=== PATIENT | female | born 1940 | race Caucasian/White ===

== ENCOUNTER 2019-06-06 11:04 | Emergency (ER) | payer MEDICARE, BC ==
[2019-06-06] MEDS ORDERED: Ketorolac 30 MG/ML SDV IM ONE (11:56)
--- NOTE | 2019-06-06 11:59 | EDM.PDOC ---
ED HPI GENERAL MEDICAL PROBLEM - General Chief Complaint: Lower Extremity Injury/Pain Stated Complaint: PAIN IN THE LEG Time Seen by Provider: 06/06/19 11:57 Source of Information: Reports: Patient, Family, RN Notes Reviewed History Limitations: Reports: No Limitations - History of Present Illness INITIAL COMMENTS - FREE TEXT/NARRATIVE: 79-year-old female presents emergency department today complaint of left knee pain, she denies any trauma she has had knee pain for the last 3 days however got progressively worse today to the point where she cannot bear weight because of a history of hip replacement on the left side - Related Data Allergies Allergy/AdvReac Type Severity Reaction Status Date / Time No Known Allergies Allergy Verified 10/06/18 07:44 Home Meds: Home Meds Lisinopril [Prinivil] 10 mg PO DAILY 05/16/18 [History] Past Medical History HEENT History: Reports: Hard of Hearing, Impaired Vision Cardiovascular History: Reports: Hypertension Gastrointestinal History: Reports: GERD, Hemorrhoids 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: Musculoskeletal History: Reports: Arthritis, Back Pain, Chronic, Osteoarthritis Endocrine/Metabolic History: Reports: Vitamin D Deficiency Dermatologic History: Reports: Psoriasis, Other (See Below) Other Dermatologic History: rash on the elbows - Infectious Disease History Infectious Disease History: Reports: Chicken Pox, Measles, 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, Other - Past Surgical History HEENT Surgical History: Reports: Adenoidectomy, Tonsillectomy Cardiovascular Surgical History: Reports: None, Varicose Respiratory Surgical History: Reports: None GI Surgical History: Reports: Colonoscopy Female Surgical History: Reports: None Endocrine Surgical History: Reports: None Neurological Surgical History: Reports: None Musculoskeletal Surgical History: Reports: Hip Replacement Oncologic Surgical History: Reports: None Dermatological Surgical History: Reports: None Social & Family History - Family History Family Medical History: Noncontributory - Tobacco Use Smoking Status *Q: Never Smoker - Caffeine Use Caffeine Use: Reports: Coffee - Recreational Drug Use Recreational Drug Use: No Review of Systems - Review of Systems Review Of Systems: See Below Constitutional: Reports: No Symptoms Musculoskeletal: Reports: Joint Pain (Knee pain) Neurological: Reports: Tingling (Left foot) ED EXAM, GENERAL - Physical Exam Exam: See Below Free Text/Narrative:: Examination of the left knee on the appreciate any erythema there is no edema noted there is no specific point tenderness when I palpate however she will not tolerate any flexion or extension of the knee, radial pulses +2 examination left hip she tolerates internal and external rotation flexion and extension without difficulty Course - Vital Signs Last Recorded V/S: Last Vital Signs Temp 97.6 F 06/06/19 12:29 Pulse 57 L 06/06/19 12:29 Resp 16 06/06/19 12:29 BP 143/71 H 06/06/19 12:29 Pulse Ox 93 L 06/06/19 12:29 - Orders/Labs/Meds Orders: Active Orders 24 hr Category Date Time Status Duplex Lwr Ext Veins Ltd Lt [US] Stat Exams 06/06/19 14:57 Taken Meds: Medications Discontinued Medications Generic Name Dose Route Start Last Admin Trade Name Alison PRN Reason Stop Dose Admin Fentanyl 50 mcg 06/06/19 14:22 06/06/19 14:26 Sublimaze IM 06/06/19 14:23 50 mcg ONETIME ONE Administration Ketorolac Tromethamine 30 mg 06/06/19 11:56 06/06/19 12:17 Toradol IM 06/06/19 11:57 30 mg ONETIME ONE Administration Departure - Departure Time of Disposition: 15:47 Disposition: Home, Self-Care 01 Condition: Fair Clinical Impression: Left knee pain Qualifiers: Chronicity: acute Qualified Code(s): M25.562 - Pain in left knee - Discharge Information Referrals: PCP,None [Primary Care Provider] - Forms: ED Department Discharge Additional Instructions: Use Tylenol or Motrin as needed for pain control, use hydrocodone for breakthrough pain, the orthopedics department will call you for an appointment time, call or return to the emergency department worsening of symptoms - My Orders Last 24 Hours: My Active Orders 06/06/19 14:57 Duplex Lwr Ext Veins Ltd Lt [US] Stat - Assessment/Plan Last 24 Hours: My Active Orders 06/06/19 14:57 Duplex Lwr Ext Veins Ltd Lt [US] Stat Plan: Assessment Acuity = acute Site and laterality = left knee pain Etiology = unknown etiology Manifestations = none Location of injury = Home Lab values = x-ray reveals no acute process ultrasound lower extremity is no DVT however there is fluid along the medial aspect of the joint line Plan I did review x-ray and ultrasound results with her, discharge home hydrocodone 5 /325 one tab by mouth 3 times a day. Total #6 ibuprofen and Tylenol for baseline pain control follow-up in orthopedics 1 week This note was dictated using [employer] voice recognition software please call with any questions on syntax or grammar.
[2019-06-06 12:30] VITALS: BP 143/71; PULSE 57
--- NOTE | 2019-06-06 13:03 | CRLCR ---
INDICATION: KNEE PAIN NKI TECHNIQUE: Left knee 3 views. COMPARISON: None. FINDINGS: Bones: Alignment is normal. No fractures or bone lesions. Joint spaces: Unremarkable. Soft tissues: Unremarkable. IMPRESSION: Unremarkable left knee. Dictated by: Mychal Paula MD @ 06/06/2019 13:01:22 (Electronically Signed)
[2019-06-06] MEDS ORDERED: fentaNYL 100 MCG/2 ML SDV IM ONE (14:22)
--- NOTE | 2019-06-06 15:55 | CRLUS ---
INDICATION: left leg pain, can not stand TECHNIQUE: Ultrasound venous duplex left lower extremity. COMPARISON: None. FINDINGS: The left common femoral, superficial femoral, deep femoral, popliteal, posterior tibial, and greater saphenous veins are fully compressible normal waveforms. IMPRESSION: Normal ultrasound of the left lower extremity veins. Dictated by: Mychal Paula MD @ 06/06/2019 15:53:15 (Electronically Signed)
== END 2019-06-06 16:33 | disposition home or self-care (01) ==
LOC: JP.ED 11:04
DX: M25.562 Pain in left knee (principal); I10 Essential (primary) hypertension; K21.9 Gastro-esophageal reflux disease without esophagitis; Z79.899 Other long term (current) drug therapy
CPT/HCPCS: 73562; 93971; 96372; 99284; J1885; J3010; 99283

== ENCOUNTER 2020-02-10 08:51 | Emergency (ER) | payer MEDICARE, BC ==
[2020-02-10 09:05] VITALS: BP 194/89; PULSE 77
--- NOTE | 2020-02-10 09:19 | EDM.PDOC ---
ED HPI GENERAL MEDICAL PROBLEM - General Chief Complaint: Skin Complaint Stated Complaint: POSSIBLE SHINGLES Time Seen by Provider: 02/10/20 09:05 Source of Information: Reports: Patient History Limitations: Reports: No Limitations - History of Present Illness INITIAL COMMENTS - FREE TEXT/NARRATIVE: Patient presents concerned that she may be developing shingles on her upper face. 2 days ago, she noticed the beginning of some pain and mild reddish discoloration on the right side of the forehead and extending into her hinduism region. She states that it feels as though there is irritation behind her eye as well. She had shingles about 20 years ago and recovered without sequela. She has had the herpes zoster vaccine. She's not been ill from anything else recently. She has not noticed blister formation or fluid drainage. The area in question is the right forehead/eye/temporal region. Vision is fine. There are no symptoms or skin changes on the left half of the head. Onset Date: 02/08/20 Location: Reports: Head Quality: Reports: Ache, Burning Severity: Mild Improves with: Reports: None Worsens with: Reports: None Right Head Pain Score (Numeric/FACES): 5 - Related Data Allergies Allergy/AdvReac Type Severity Reaction Status Date / Time No Known Allergies Allergy Verified 02/10/20 09:12 Home Meds: Home Meds lisinopriL [Prinivil] 10 mg PO DAILY 05/16/18 [History] Calcium Citrate/Vitamin D3 [Calcium Citrate with D Tablet] 1 tab PO BID [History] Glucosam/Chondr/Collagn/Hyalur [Glucosamine & Chondroitin Cap] 1 each PO DAILY 07/06/19 [History] Past Medical History HEENT History: Reports: Hard of Hearing, Impaired Vision Cardiovascular History: Reports: Hypertension Respiratory History: Reports: None Gastrointestinal History: Reports: GERD, Hemorrhoids Genitourinary History: Reports: None 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: Musculoskeletal History: Reports: Arthritis, Back Pain, Chronic, Osteoarthritis Neurological History: Reports: None Psychiatric History: Reports: None Endocrine/Metabolic History: Reports: Vitamin D Deficiency Hematologic History: Reports: None Immunologic History: Reports: None Oncologic (Cancer) History: Reports: None Dermatologic History: Reports: Psoriasis, Other (See Below) Other Dermatologic History: rash on the elbows - Infectious Disease History Infectious Disease History: Reports: Chicken Pox, Measles, 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, Other - Past Surgical History Head Surgeries/Procedures: Reports: None HEENT Surgical History: Reports: Adenoidectomy, Tonsillectomy Cardiovascular Surgical History: Reports: None, Varicose Respiratory Surgical History: Reports: None GI Surgical History: Reports: Colonoscopy Female Surgical History: Reports: None Endocrine Surgical History: Reports: None Neurological Surgical History: Reports: None Musculoskeletal Surgical History: Reports: Hip Replacement Other Musculoskeletal Surgeries/Procedures:: left hip Oncologic Surgical History: Reports: None Dermatological Surgical History: Reports: None Social & Family History - Family History Family Medical History: Noncontributory - Caffeine Use Caffeine Use: Reports: None ED ROS GENERAL - Review of Systems Review Of Systems: See Below Constitutional: Denies: Fever, Chills, Malaise HEENT: Reports: Eye Pain (Right eye region.), Other (Pain and rash on right half of the forehead.). Denies: Eye Discharge Skin: Reports: Rash (Right half of for head.) ED EXAM, SKIN/RASH Exam: See Below Text/Narrative:: Patient is seated on the cart in room 14. She is an extensive historian. Exam Limited By: No Limitations General Appearance: Mild Distress Head: Other (There is an irregularly shaped area of redness and elevation just below the hairline on the right forehead area. There is pain on palpation across most of the right forehead and temporal region. There are no vesicles seen.) Neck: Normal Inspection, Supple, Non-Tender Course - Vital Signs Last Recorded V/S: Last Vital Signs Temp 36.4 C 02/10/20 09:04 Pulse 77 02/10/20 09:04 Resp 16 02/10/20 09:04 BP 194/89 H 02/10/20 09:04 Pulse Ox 95 02/10/20 09:04 - Orders/Labs/Meds Meds: Medications Discontinued Medications Generic Name Dose Route Start Last Admin Trade Name Alison PRN Reason Stop Dose Admin Fluorescein Sodium 1 mg 02/10/20 09:25 02/10/20 09:38 Ful-Bettie EYERT 02/10/20 09:26 Not Given ONETIME ONE Proparacaine HCl 1 ml 02/10/20 09:24 02/10/20 09:37 Proparacaine 0.5% Ophth Soln EYERT 02/10/20 09:25 1 drop ONETIME ONE Administration - Re-Assessments/Exams Free Text/Narrative Re-Assessment/Exam: 02/10/20 09:21 History and exam are certainly concerning for development of herpes zoster. Following topical proparacaine and fluorescein application, no evidence of surface change to the right eye such as ferning was seen. Patient was sent with a prescription for valacyclovir 1000 mg, 21 tablets; use as directed. She should follow-up with primary care and or an eye doctor this week, in particular if ocular symptoms are worsening. Although we don't know for sure that this is zoster, she should avoid contact with immunosuppressed individuals or anyone who is never had zoster such as young children. 02/10/20 09:48 02/10/20 09:52 Return to ER if feeling worse in any way prior to recheck. 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 Although we don't know for sure that this is shingles, for medication to be effective it needs to be started early and there is not a wound side to treating a suspected case with antivirus medication. He should avoid close contact with anyone that is immunosuppressed such as people undergoing chemotherapy for cancer. Contact with any individual, especially children, who have not had chickenpox or the vaccine for chickenpox should be avoided. I recommend rechecking with primary care and/or an eye doctor this week since you have pain in the vicinity of the right eye. There was no evidence of shingles changed to the surface of the eye today. Return to ER if feeling worse in anyway area did Sepsis Event Note - Evaluation Sepsis Screening Result: No Definite Risk - Focused Exam Vital Signs: Vital Signs Temp Pulse Resp BP Pulse Ox 02/10/20 09:04 36.4 C 77 16 194/89 H 95 Date Exam was Performed: 02/10/20 Time Exam was Performed: 09:54
[2020-02-10] MEDS ORDERED: Proparacaine 0.5% Ophth Soln 15 ML Bottle EYERT ONE (09:24)
[2020-02-10] MEDS ORDERED: Fluorescein 1 MG Ophth Strip EYERT ONE (09:25)
== END 2020-02-10 10:06 | disposition home or self-care (01) ==
LOC: JP.ED 08:51
DX: B02.30 Zoster ocular disease, unspecified (principal); I10 Essential (primary) hypertension; K21.9 Gastro-esophageal reflux disease without esophagitis; Z79.899 Other long term (current) drug therapy
CPT/HCPCS: 99283; A9270-GY

== ENCOUNTER 2021-03-20 13:01 | Emergency (ER) | payer MEDICARE, BC ==
[2021-03-20 13:28] VITALS: BP 185/93; PULSE 91
--- NOTE | 2021-03-20 14:25 | US ---
VL Duplex Lwr Ext Veins Ltd Rt INDICATION: leg pain 3 weeks FINDINGS: Ultrasound examination of the lower extremity using Doppler and compressive technique demonstrates that the common femoral, femoral, and popliteal veins are patent, and negative for thrombus. The calf veins were segmentally visualized and are negative where seen. IMPRESSION: Negative for deep venous thrombosis.
--- NOTE | 2021-03-20 14:41 | EDM.PDOC ---
ED HPI GENERAL MEDICAL PROBLEM - General Chief Complaint: Lower Extremity Injury/Pain Stated Complaint: RT LEG PAIN Time Seen by Provider: 03/20/21 13:40 Source of Information: Reports: Patient History Limitations: Reports: No Limitations - History of Present Illness INITIAL COMMENTS - FREE TEXT/NARRATIVE: 80-year-old female with persistent right sciatica-like pain extending down the right leg through the right knee into the right ankle for the last 3 to 4 weeks. She has been seen at the clinic twice and has a neurology consult week after a back MRI. She has been on gabapentin, anti-inflammatories, prednisone, and nothing seems to be helping and she developed a small amount of foot swelling today and called the clinic and they told her to come in for an ultrasound. She has no symptoms on the left side, no recent trauma. Onset: Gradual Duration: Week(s): (3 weeks) Location: Reports: Lower Extremity, Right Associated Symptoms: Reports: No Other Symptoms - Related Data Allergies Allergy/AdvReac Type Severity Reaction Status Date / Time No Known Allergies Allergy Verified 03/20/21 13:19 Home Meds: Home Meds lisinopriL [Prinivil] 10 mg PO DAILY 05/16/18 [History] Calcium Citrate/Vitamin D3 [Calcium Citrate with D Tablet] 1 tab PO BID 06/22/19 [History] Glucosam/Chondr/Collagn/Hyalur [Glucosamine & Chondroitin Cap] 1 each PO DAILY 07/06/19 [History] Past Medical History HEENT History: Reports: Hard of Hearing, Impaired Vision Cardiovascular History: Reports: Hypertension Respiratory History: Reports: None Gastrointestinal History: Reports: GERD, Hemorrhoids Genitourinary History: Reports: 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: Musculoskeletal History: Reports: Arthritis, Back Pain, Chronic, Osteoarthritis Neurological History: Reports: None Psychiatric History: Reports: None Endocrine/Metabolic History: Reports: Vitamin D Deficiency Hematologic History: Reports: None Immunologic History: Reports: None Oncologic (Cancer) History: Reports: None Dermatologic History: Reports: Psoriasis, Other (See Below) Other Dermatologic History: rash on the elbows - Infectious Disease History Infectious Disease History: Reports: Chicken Pox, Measles, 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, Other - Past Surgical History Head Surgeries/Procedures: Reports: None HEENT Surgical History: Reports: Adenoidectomy, Tonsillectomy Cardiovascular Surgical History: Reports: None, Varicose Respiratory Surgical History: Reports: None GI Surgical History: Reports: Colonoscopy Female Surgical History: Reports: None Endocrine Surgical History: Reports: None Neurological Surgical History: Reports: None Musculoskeletal Surgical History: Reports: Hip Replacement Other Musculoskeletal Surgeries/Procedures:: left hip Oncologic Surgical History: Reports: None Dermatological Surgical History: Reports: None Social & Family History - Family History Family Medical History: No Pertinent Family History - Tobacco Use Tobacco Use Status *Q: Never Tobacco User - Caffeine Use Caffeine Use: Reports: None Review of Systems - Review of Systems Review Of Systems: See Below Constitutional: Denies: Fever Respiratory: Reports: No Symptoms Cardiovascular: Reports: No Symptoms Genitourinary: Denies: Incontinence Musculoskeletal: Denies: Neck Pain Skin: Denies: Bruising, Erythema Neurological: Denies: Paresthesia (Denies numbness down the lower extremities) Psychiatric: Reports: No Symptoms ED EXAM, GENERAL - Physical Exam Exam: See Below Exam Limited By: No Limitations General Appearance: Alert, No Apparent Distress, Other (No significant distressed was sitting on the exam table, marked increase in pain after attempting to bear weight with the right leg) Eye Exam: Bilateral Eye: Normal Inspection Respiratory/Chest: No Respiratory Distress, Lungs Clear Cardiovascular: Regular Rate, Rhythm Extremities: No: Pedal Edema (No pedal edema to either extremity) Neurological: Alert, Oriented, Other (Patient does have an increase in pain with flexion of the right hip with the knee extended, typical of radiculopathy) Psychiatric: Normal Affect, Normal Mood Skin Exam: Warm, Dry Course - Vital Signs Last Recorded V/S: Last Vital Signs Temp 97.0 F 03/20/21 13:29 Pulse 91 03/20/21 13:29 Resp 18 03/20/21 13:29 BP 185/93 H 03/20/21 13:29 Pulse Ox 96 03/20/21 13:29 - Re-Assessments/Exams Free Text/Narrative Re-Assessment/Exam: 03/20/21 17:32 An ultrasound of the leg was done which was negative for DVT. Patient was enc ouraged to restart her gabapentin, and was given 6 hydrocodone for extra pain control when trying to sleep. She has the neurologic consultation in 6 days. Departure - Departure Time of Disposition: 15:14 Disposition: Home, Self-Care 01 Clinical Impression: Right sided sciatica - Discharge Information Instructions: Sciatica, [id number] Referrals: Luz Powell PA [Primary Care Provider] - Forms: ED Department Discharge Care Plan Goals: Restart gabapentin, continue with the anti-inflammatory like Motrin and add stronger pain medications if needed 1 every 4 hours as prescribed through the weekend. Recheck next week as scheduled. Sepsis Event Note (ED) - Evaluation Sepsis Screening Result: No Definite Risk - Focused Exam Vital Signs: Vital Signs Temp Pulse Resp BP Pulse Ox 03/20/21 13:29 97.0 F 91 18 185/93 H 96 03/20/21 13:26 97.0 F 91 18 185/93 H 96
== END 2021-03-20 15:14 | disposition home or self-care (01) ==
LOC: JP.ED 13:01
DX: M54.31 Sciatica, right side (principal); I10 Essential (primary) hypertension; Z79.899 Other long term (current) drug therapy
CPT/HCPCS: 93971-26; 93971-RT; 99283; 99283-25

== ENCOUNTER 2021-05-12 07:02 | Day surgery (SDC) | payer MEDICARE, BC ==
[2021-05-12] MEDS ORDERED: fentaNYL 100 MCG/2 ML SDV ONE (07:29)
[2021-05-12] MEDS ORDERED: Propofol 200 MG/20 ML SDV ONE (07:29)
[2021-05-12] MEDS ORDERED: Sodium Chloride 0.9% 1,000 ML IV SCH (07:30)
[2021-05-12 07:50] VITALS: BP 160/71; PULSE 71
== END 2021-05-12 09:00 | disposition home or self-care (01) ==
LOC: JP.SDS 07:02
PROVIDERS: ATTEND Surgery
DX: R13.10 Dysphagia, unspecified (principal); I10 Essential (primary) hypertension; K21.9 Gastro-esophageal reflux disease without esophagitis; Z53.09 Procedure and treatment not carried out because of other contraindication; Z86.010 Personal history of colon polyps
CPT/HCPCS: J2704; J3010; J7030

== ENCOUNTER 2021-05-14 06:41 | Day surgery (SDC) | payer MEDICARE, BC ==
[2021-05-14] MEDS ORDERED: Sodium Chloride 0.9% 1,000 ML IV SCH (07:00)
[2021-05-14] MEDS ORDERED: Propofol 200 MG/20 ML SDV ONE (07:30)
[2021-05-14] MEDS ORDERED: fentaNYL 100 MCG/2 ML SDV ONE (07:30)
[2021-05-14 10:04] VITALS: BP 143/70; PULSE 67
--- NOTE | 2021-05-14 14:32 | OR ---
DATE OF PROCEDURE: 05/14/2021 SURGEON: Gino Garcia MD PROCEDURE: Esophagogastroduodenoscopy. FINDINGS: 1. Ring-type narrowing of GE junction (biopsied in all 4 quadrants using cold biopsy forceps). 2. Dilation, GE junction, 45-Macedonian balloon. 3. 5 cm hiatal hernia. COMPLICATIONS: None. 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 ANESTHESIA: MAC. PREOPERATIVE DIAGNOSIS: Dysphagia. POSTOPERATIVE DIAGNOSIS: Dysphagia. RISKS: Risks, benefits, alternatives, and limitations including, but not limited to infection, bleeding, perforation, false positives and false negatives were explained to the patient and they wished to proceed. PROCEDURE IN DETAIL: The patient was placed in left lateral decubitus position. The EEG scope was advanced atraumatically to the second part of the duodenum. No evidence of duodenitis or ulceration. Within the stomach itself, there was no gastritis. At the GE junction, the patient had a narrowing ring. This was narrowed approximately 25%. After biopsying in all 4 quadrants using cold biopsy forceps, the balloon was introduced and dilated to 45-Macedonian. The patient was also noted to have a 5 cm hiatal hernia. The remainder of the esophagus was inspected without abnormality. The air was removed from the stomach. The patient tolerated the procedure well. Gino Garcia MD /[id number]
== END 2021-05-14 10:06 | disposition home or self-care (01) ==
LOC: JP.SDS 06:41
PROVIDERS: ATTEND Surgery
DX: K22.10 Ulcer of esophagus without bleeding (principal); R13.10 Dysphagia, unspecified; K44.9 Diaphragmatic hernia without obstruction or gangrene
CPT/HCPCS: 88305; 88312; J2704; J3010; J7030

== ENCOUNTER 2023-01-06 08:11 | Day surgery (SDC) | payer MEDICARE, BC ==
[2023-01-06] MEDS ORDERED: Sodium Chloride 0.9% 10 ML Syringe FLUSH PRN (09:00)
[2023-01-06 09:41] VITALS: BP 170/61; PULSE 77
== END 2023-01-06 09:51 | disposition home or self-care (01) ==
LOC: JP.SDS 08:11
PROVIDERS: ATTEND Ophthalmology
DX: H26.9 Unspecified cataract (principal); I10 Essential (primary) hypertension; K21.9 Gastro-esophageal reflux disease without esophagitis
CPT/HCPCS: 66984; J3490